=== PATIENT | female | born 1990 | race African-American/Black ===

== ENCOUNTER 2022-01-31 21:17 | Emergency (ER) | payer SELFPAY ==
[~2022-01-31] VITALS: Ht 175.3 cm; Wt 76.0 kg
[2022-02-01 00:43] VITALS: BP 112/50
== END 2022-02-01 02:36 | disposition home or self-care (01) ==
LOC: ER 21:17
DX: T40.711A Poisoning by cannabis, accidental (unintentional), initial encounter (principal); R07.89 Other chest pain; F12.980 Cannabis use, unspecified with anxiety disorder; Y92.89 Other specified places as the place of occurrence of the external cause
CPT/HCPCS: 93005; 99283